=== PATIENT | male | born 1960 ===

== ENCOUNTER 2018-09-29 17:51 | Emergency (ER) | payer OTHER ==
[~2018-09-29] VITALS: Ht 190.5 cm; Wt 99.8 kg
[2018-09-30] MEDS ORDERED: MEDROLPACK PO (03:40)
[2018-09-30] MEDS ORDERED: TESSALON PERLE100 M1 PO (03:40)
[2018-09-30] MEDS ORDERED: MUCINEX DM ER1 EAC1 PO (03:40)
[2018-09-30] MEDS ORDERED: BUDESONIDE0.5 MG/2 M IH (03:40)
[2018-09-30] MEDS ORDERED: IPRAT-ALBUT 0.5-3 ML IH (03:40)
[2018-09-30] MEDS ORDERED: ZITHROMAX500 MG PO (03:40)
== END 2018-09-30 03:59 | disposition home or self-care (01) ==
LOC: ER 17:51
DX: J45.998 Other asthma (principal)